=== PATIENT | female | born 1965 | race Caucasian/White ===

== ENCOUNTER 2017-05-11 03:53 | Emergency (ER) | payer OTHER ==
[~2017-05-11] VITALS: Ht 172.7 cm; Wt 74.3 kg
[~2017-05-11 03:53] MED LIST: NOHOMEMEDS; PERCOCET 5/31 TABLET PO
[2017-05-11] MEDS ORDERED: PERCOCET 5/31 TABLET PO (04:29)
[2017-05-11] MEDS ORDERED: ZITHROMAX Z-PA250 MG PO (04:29)
[2017-05-11 05:02] VITALS: BP 107/81
== END 2017-05-11 05:04 | disposition home or self-care (01) ==
LOC: EME 03:53
DX: J01.90 Acute sinusitis, unspecified (principal); B34.9 Viral infection, unspecified; F17.200 Nicotine dependence, unspecified, uncomplicated
CPT/HCPCS: 99281; 99284

== ENCOUNTER 2017-05-24 18:30 | Emergency (ER) | payer OTHER ==
[~2017-05-24] VITALS: Ht 172.7 cm; Wt 75.8 kg
[~2017-05-24 18:30] MED LIST changes: +ZITHROMAX Z-PA250 MG PO
[2017-05-24 20:38] LABS: HEMATOCRIT 46.9 % (36.0-46.0); HEMOGLOBIN 15.9 G/DL (11.9-15.5); MCH 30.8 PG (29.0-34.0); MCHC 33.9 G/DL (30.0-36.0); MCV 90.9 FL (83-99); PLATELET COUNT 261 K/uL (156-360); RBC DIS.WIDTH-CV 12.4 % (11.8-14.6); RBC DIS.WIDTH-SD 41.2 % (39-53); RED BLOOD COUNT 5.16 M/uL (3.80-5.20)
[2017-05-24 20:46] LABS: CHLORIDE 104 mEq/L (99-109); POTASSIUM 4.3 mEq/L (3.7-5.4); SODIUM 143 mEq/L (136-147)
[2017-05-24 20:48] LABS: GLUCOSE 89 mg/dL (70-99)
[2017-05-24 20:52] LABS: CREATININE 0.8 mg/dL (0.6-1.3); GFR ESTIMATE (CALCULATED) > 59 mL/min/
[2017-05-24 20:53] LABS: UREA NITROGEN (BUN) 11 mg/dL (9-23)
[2017-05-24 20:59] LABS: TROP-I INTERPRETATION NEGATIVE; TROPONIN-I < 0.01 ng/mL (0.0-0.30)
[2017-05-24] MEDS ORDERED: LIDODERM 5% P1 PATCH TD (21:21)
[2017-05-24] MEDS ORDERED: VOLTAREN 1% GE100 GM TP (21:21)
[2017-05-24] MEDS ORDERED: BACLOFEN10 MG PO (21:21)
[2017-05-24 21:58] VITALS: BP 141/100
== END 2017-05-24 21:59 | disposition home or self-care (01) ==
LOC: EME 18:30
DX: M25.512 Pain in left shoulder (principal); M54.6 Pain in thoracic spine; I45.10 Unspecified right bundle-branch block; R94.31 Abnormal electrocardiogram [ECG] [EKG]; F32.9 Major depressive disorder, single episode, unspecified; F17.200 Nicotine dependence, unspecified, uncomplicated
CPT/HCPCS: 71046; 80048; 84484; 85027; 93005; 99281; 99284; J1885